=== PATIENT | male | born 1950 | race Caucasian/White ===

== ENCOUNTER 2016-08-06 17:14 | Inpatient (IN) | payer MEDICARE ==
[2016-08-06] VITALS: BP 140/84
[~2016-08-06] VITALS: Ht 175.3 cm; Wt 70.3 kg
[2016-08-06] MEDS ORDERED: ONDANSETRON HCL/PF 4 MG/2 ML VIAL IVP ONE (18:00)
[2016-08-06] MEDS ORDERED: IV NS 0.9% 1,000 ML BAG IV ONE (18:00)
[2016-08-06 18:07] LABS: BASOPHILS % (AUTO) 0.3 % (0.0-2.0); DIFF TOTAL % 100 %; EOSINOPHILS # (AUTO) 0.1 /CMM (0.0-0.7); EOSINOPHILS % (AUTO) 0.6 % (0.0-6.0); HEMATOCRIT 49 % (39-51); HEMOGLOBIN 16.8 g/dL (13.5-17.5); LYMPHOCYTES # (AUTO) 1.6 /CMM (0.8-4.8); LYMPHOCYTES % (AUTO) 15.1 % (20.0-44.0); MEAN CORPUSCULAR HEMOGLOBIN 33 PG (26.0-33.0); MEAN CORPUSCULAR HGB CONC 35 g/dl (31.0-36.0); MEAN CORPUSCULAR VOLUME 96 fL (80-96); MONOCYTES # (AUTO) 1.3 /CMM (0.1-1.30); MONOCYTES % (AUTO) 12.3 % (2.0-12.0); NEUTROPHILS # (AUTO) 7.4 /CMM (1.8-8.9); NEUTROPHILS % (AUTO) 71.7 % (43.0-81.0); PLATELET COUNT (AUTO) 217 /CMM (150-450); RED BLOOD CELL COUNT(AUTO) 5.07 MIL/uL (4.5-6.0); WHITE BLOOD COUNT (AUTO) 10.4 K/uL (4.3-11.0)
[2016-08-06] MEDS ORDERED: IV SET PRIMARY 1 EA INFUS.SET MC ONE (18:15)
[2016-08-06] MEDS ORDERED: ONDANSETRON HCL/PF 4 MG/2 ML VIAL ONE (18:15)
[2016-08-06] MEDS ORDERED: IV NS 0.9% 1,000 ML ONE ×2 (18:15→19:04)
[2016-08-06 18:29] LABS: BILIRUBIN,DIRECT 0.3 mg/dL (0.0-0.2); BILIRUBIN,TOTAL 0.9 mg/dL (0.2-1.0); CALCIUM, SERUM 8.8 mg/dL (8.5-10.1); CREATININE 0.9 mg/dL (0.6-1.3); INDIRECT BILIRUBIN 0.6 mg/dL (0.0-1.1); POTASSIUM 2.9 mmol/L (3.5-5.1); TOTAL PROTEIN, SERUM 6.7 g/dL (6.4-8.2)
[2016-08-06 18:31] LABS: TROPONIN I 0.023 ng/mL (0.00-0.056)
[2016-08-06] MEDS ORDERED: IV NS 0.9% 1,000 ML IV ONE (19:00)
[2016-08-06] MEDS ORDERED: POTASSIUM CL. PREMIX PERIPHER. 50 ML ONE (19:04)
[2016-08-06] MEDS ORDERED: IV SET PRIMARY PUMP SET 1 EA INFUS.SET MC ONE (19:04)
[2016-08-06] MEDS: POTASSIUM CL. PREMIX PERIPHER. 50 ML IV SCH ×3 (19:13→23:10)
[2016-08-06] MEDS ORDERED: POTASSIUM CL. PREMIX PERIPHER. 150 ML ONE (20:23)
[2016-08-06 20:30] VITALS: BP 131/76
[2016-08-06] MEDS ORDERED: SECONDARY IV SET 1 EA INFUS.SET MC ONE (20:41)
[2016-08-06] MEDS ORDERED: ONDANSETRON HCL/PF 4 MG/2 ML VIAL IVP PRN (22:30)
[2016-08-06] MEDS ORDERED: ZOLPIDEM TARTRATE 5 MG TABLET PO PRN (22:30)
[2016-08-06] MEDS ORDERED: Z GUARD REMEDY 2 OZ OINT TP PRN (22:30)
[2016-08-06] MEDS ORDERED: MAGNESIUM HYDROXIDE 30 ML UDC PO PRN (22:30)
[2016-08-06] MEDS ORDERED: MAG HYDROX/AL HYDROX/SIMETH 30 ML UDC PO PRN (22:30)
[2016-08-06] MEDS ORDERED: ACETAMINOPHEN 325 MG TABLET PO PRN (22:30)
[2016-08-06] MEDS ORDERED: HYDROCODONE/APAP 5/325MG 1 EACH TABLET PO PRN (22:30)
[2016-08-06] MEDS ORDERED: METOPROLOL TARTRATE INJ 5 MG/5 ML AMPUL ONE (23:26)
[2016-08-06] MEDS ORDERED: METOPROLOL TARTRATE INJ 5 MG/5 ML AMPUL IVP ONE (23:30)
[2016-08-06] MEDS ORDERED: METOPROLOL TARTRATE INJ 5 MG/5 ML AMPUL IVP PRN (23:30)
[2016-08-07] VITALS (7 sets, daily range): BP systolic 112–152; BP diastolic 50–92
[2016-08-07] MEDS: POTASSIUM CL. PREMIX PERIPHER. 50 ML IV SCH (01:12)
[2016-08-07 07:28] LABS: BASOPHILS % (AUTO) 0.4 % (0.0-2.0); DIFF TOTAL % 100 %; EOSINOPHILS # (AUTO) 0.1 /CMM (0.0-0.7); EOSINOPHILS % (AUTO) 1.4 % (0.0-6.0); HEMATOCRIT 43 % (39-51); HEMOGLOBIN 14.6 g/dL (13.5-17.5); LYMPHOCYTES % (AUTO) 20.2 % (20.0-44.0); MEAN CORPUSCULAR HEMOGLOBIN 33 PG (26.0-33.0); MEAN CORPUSCULAR HGB CONC 34 g/dl (31.0-36.0); MEAN CORPUSCULAR VOLUME 97 fL (80-96); MONOCYTES # (AUTO) 1.3 /CMM (0.1-1.30); MONOCYTES % (AUTO) 12.9 % (2.0-12.0); NEUTROPHILS # (AUTO) 6.4 /CMM (1.8-8.9); NEUTROPHILS % (AUTO) 65.1 % (43.0-81.0); PLATELET COUNT (AUTO) 207 /CMM (150-450); RED BLOOD CELL COUNT(AUTO) 4.41 MIL/uL (4.5-6.0); WHITE BLOOD COUNT (AUTO) 9.9 K/uL (4.3-11.0)
[2016-08-07 07:49] LABS: ALBUMIN 2.5 g/dL (3.4-5.0); BILIRUBIN,TOTAL 0.9 mg/dL (0.2-1.0); CALCIUM, SERUM 8.2 mg/dL (8.5-10.1); PHOSPHORUS 3.3 mg/dL (2.5-4.9); POTASSIUM 3.7 mmol/L (3.5-5.1); TOTAL PROTEIN, SERUM 5.7 g/dL (6.4-8.2)
[2016-08-07] MEDS ORDERED: TAMS-12 PO (07:49)
[2016-08-07 07:55] LABS: PREALBUMIN 13.4 MG/DL (18.0-35.7); THYROID STIMULATING HORMONE 1.513 uIU/mL (0.358-3.74)
[2016-08-07] MEDS: PANTOPRAZOLE 40 MG TABLET.DR PO SCH (08:31)
[2016-08-07] MEDS ORDERED: IV NS 0.9% 1,000 ML IV PRN (08:51)
[2016-08-07] MEDS ORDERED: METOPROLOL TARTRATE 50 MG TABLET PO SCH (09:00)
[2016-08-07] MEDS ORDERED: ASPIRIN 81 MG TAB.CHEW PO SCH (09:00)
[2016-08-07] MEDS ORDERED: SECONDARY IV SET 1 EA INFUS.SET MC ONE (09:06)
[2016-08-07] MEDS: Magnesium 1GM/D5W 100ML PREMIX 100 ML IV SCH ×2 (09:39→11:25)
[2016-08-07] MEDS: METOPROLOL TARTRATE 50 MG TABLET PO SCH ×2 (09:39→20:44)
[2016-08-07] MEDS: POTASSIUM CHLORIDE 20 MEQ TAB.PRT.SR PO SCH ×3 (09:39→10:47)
[2016-08-07] MEDS: IV NS 0.9% 1,000 ML IV PRN (16:29)
[2016-08-07] MEDS: LORAZEPAM INJ 2 MG/ML VIAL IV PRN (16:30)
[2016-08-07] MEDS ORDERED: ATORVASTATIN 40 MG TABLET PO SCH (22:00)
[2016-08-08] VITALS: BP 136/70
[2016-08-08] MEDS: LORAZEPAM INJ 2 MG/ML VIAL IV PRN (01:06)
[2016-08-08] MEDS: IV NS 0.9% 1,000 ML IV PRN ×3 (01:08→23:50)
[2016-08-08 04:00] VITALS: BP 128/77
[2016-08-08] MEDS: PANTOPRAZOLE 40 MG TABLET.DR PO SCH (07:30)
[2016-08-08 08:00] VITALS: BP 130/78
[2016-08-08 08:15] LABS: *RAPID PLASMA REAGIN QUAL Non Reactive (Non Reactive)
[2016-08-08] MEDS: ASPIRIN 81 MG TAB.CHEW PO SCH (08:33)
[2016-08-08] MEDS: METOPROLOL TARTRATE 50 MG TABLET PO SCH ×2 (08:33→20:57)
[2016-08-08 11:59] LABS: BASOPHILS # (AUTO) 0.1 /CMM (0.0-0.2); BASOPHILS % (AUTO) 0.7 % (0.0-2.0); DIFF TOTAL % 100 %; EOSINOPHILS # (AUTO) 0.1 /CMM (0.0-0.7); EOSINOPHILS % (AUTO) 1.1 % (0.0-6.0); HEMATOCRIT 40 % (39-51); HEMOGLOBIN 13.6 g/dL (13.5-17.5); LYMPHOCYTES # (AUTO) 1.5 /CMM (0.8-4.8); LYMPHOCYTES % (AUTO) 16.9 % (20.0-44.0); MEAN CORPUSCULAR HEMOGLOBIN 33 PG (26.0-33.0); MEAN CORPUSCULAR HGB CONC 34 g/dl (31.0-36.0); MEAN CORPUSCULAR VOLUME 97 fL (80-96); MONOCYTES % (AUTO) 11.6 % (2.0-12.0); NEUTROPHILS # (AUTO) 6.1 /CMM (1.8-8.9); NEUTROPHILS % (AUTO) 69.7 % (43.0-81.0); PLATELET COUNT (AUTO) 182 /CMM (150-450); RED BLOOD CELL COUNT(AUTO) 4.11 MIL/uL (4.5-6.0); WHITE BLOOD COUNT (AUTO) 8.7 K/uL (4.3-11.0)
[2016-08-08 12:00] VITALS: BP 118/48
[2016-08-08 12:09] LABS: CALCIUM, SERUM 8.1 mg/dL (8.5-10.1); CREATININE 0.8 mg/dL (0.6-1.3); POTASSIUM 3.8 mmol/L (3.5-5.1)
[2016-08-08 12:10] LABS: CALCIUM, SERUM 7.6 mg/dL (8.5-10.1); CREATININE 0.8 mg/dL (0.6-1.3); POTASSIUM 3.6 mmol/L (3.5-5.1)
[2016-08-08 12:14] LABS: ALBUMIN 2.5 g/dL (3.4-5.0); BILIRUBIN,TOTAL 0.7 mg/dL (0.2-1.0); PHOSPHORUS 2.7 mg/dL (2.5-4.9); TOTAL PROTEIN, SERUM 5.6 g/dL (6.4-8.2)
[2016-08-08] MEDS ORDERED: CHLORDIAZEPOXIDE HCL 25 MG CAPSULE PO PRN (13:00)
[2016-08-08] MEDS ORDERED: Magnesium 1GM/D5W 100ML PREMIX PIGGYBACK IV ONE (14:30)
[2016-08-08 16:00] VITALS: BP 130/70
[2016-08-08] MEDS: RIVAROXABAN 10 MG TABLET PO SCH (16:14)
[2016-08-08] MEDS: Magnesium 1GM/D5W 100ML PREMIX 100 ML IV SCH ×2 (16:15→17:25)
[2016-08-08] MEDS ORDERED: APIXABAN 2.5 MG TABLET PO SCH (17:00)
[2016-08-08 20:00] VITALS: BP 112/61
[2016-08-09 04:00] VITALS: BP 117/66
[2016-08-09 08:00] VITALS: BP 142/93
[2016-08-09] MEDS: ASPIRIN 81 MG TAB.CHEW PO SCH (11:22)
[2016-08-09] MEDS: METOPROLOL TARTRATE 50 MG TABLET PO SCH ×2 (11:25→21:56)
[2016-08-09] MEDS: PANTOPRAZOLE 40 MG TABLET.DR PO SCH (11:25)
[2016-08-09] MEDS: IV NS 0.9% 1,000 ML IV PRN (14:44)
[2016-08-09 16:00] VITALS: BP 95/53
[2016-08-09] MEDS: RIVAROXABAN 10 MG TABLET PO SCH (16:54)
[2016-08-09 20:00] VITALS: BP 145/52
[2016-08-10 06:00] VITALS: BP 116/67
[2016-08-10 08:00] VITALS: BP 135/62
[2016-08-10 08:33] LABS: BASOPHILS % (AUTO) 0.4 % (0.0-2.0); DIFF TOTAL % 100 %; EOSINOPHILS # (AUTO) 0.1 /CMM (0.0-0.7); EOSINOPHILS % (AUTO) 1.1 % (0.0-6.0); HEMATOCRIT 40 % (39-51); HEMOGLOBIN 13.5 g/dL (13.5-17.5); LYMPHOCYTES # (AUTO) 1.5 /CMM (0.8-4.8); LYMPHOCYTES % (AUTO) 15.6 % (20.0-44.0); MEAN CORPUSCULAR HEMOGLOBIN 33 PG (26.0-33.0); MEAN CORPUSCULAR HGB CONC 34 g/dl (31.0-36.0); MEAN CORPUSCULAR VOLUME 97 fL (80-96); MONOCYTES # (AUTO) 1.1 /CMM (0.1-1.30); MONOCYTES % (AUTO) 11.6 % (2.0-12.0); NEUTROPHILS # (AUTO) 6.9 /CMM (1.8-8.9); NEUTROPHILS % (AUTO) 71.3 % (43.0-81.0); PLATELET COUNT (AUTO) 196 /CMM (150-450); RED BLOOD CELL COUNT(AUTO) 4.11 MIL/uL (4.5-6.0); WHITE BLOOD COUNT (AUTO) 9.7 K/uL (4.3-11.0)
[2016-08-10 08:46] LABS: CALCIUM, SERUM 8.3 mg/dL (8.5-10.1); CREATININE 0.8 mg/dL (0.6-1.3); PHOSPHORUS 2.7 mg/dL (2.5-4.9); POTASSIUM 3.6 mmol/L (3.5-5.1)
[2016-08-10 08:51] VITALS: BP 135/62
[2016-08-10] MEDS ORDERED: ASPIRIN 325 MG TABLET PO SCH (10:20)
[2016-08-10] MEDS: PANTOPRAZOLE 40 MG TABLET.DR PO SCH (10:26)
[2016-08-10] MEDS: METOPROLOL TARTRATE 50 MG TABLET PO SCH ×2 (10:26→21:00)
[2016-08-10] MEDS: Magnesium 1GM/D5W 100ML PREMIX 100 ML IV SCH ×2 (14:49→16:09)
[2016-08-10 16:00] VITALS: BP 123/68
[2016-08-10] MEDS: RIVAROXABAN 10 MG TABLET PO SCH (17:31)
[2016-08-11 08:00] VITALS: BP 160/91
[2016-08-11] MEDS: PANTOPRAZOLE 40 MG TABLET.DR PO SCH (08:35)
[2016-08-11] MEDS: METOPROLOL TARTRATE 50 MG TABLET PO SCH (08:35)
[2016-08-11 09:00] VITALS: BP 160/91
[2016-08-11] MEDS ORDERED: ATOR40TA PO (12:29)
[2016-08-11] MEDS ORDERED: RIVA10TA PO (12:29)
[2016-08-11] MEDS ORDERED: METO50TA3 PO (12:29)
[2016-08-11] MEDS ORDERED: PANT40TA2 PO (12:29)
[2016-08-11] MEDS ORDERED: ATORVASTATIN 40 MG TABLET PO SCH (12:30)
[2016-08-11] MEDS ORDERED: SECONDARY IV SET 1 EA INFUS.SET MC ONE (14:20)
[2016-08-11] MEDS: Magnesium 1GM/D5W 100ML PREMIX 100 ML IV SCH ×3 (14:27→16:11)
== END 2016-08-11 17:24 | DRG 65 ==
LOC: ER 17:16 → TELE1 19:35 → TELE-TD 23:38 → MEDSG1 08-08 15:55
PROVIDERS: ADMIT Family Medicine; ATTEND Family Medicine
PROC: 05H533Z Insertion of Infusion Device into Right Subclavian Vein, Percutaneous Approach (ICD-10-PCS; principal; 2016-08-10)
DX: I63.9 Cerebral infarction, unspecified (principal); E44.0 Moderate protein-calorie malnutrition; G81.91 Hemiplegia, unspecified affecting right dominant side; I48.91 Unspecified atrial fibrillation; E87.6 Hypokalemia; E83.42 Hypomagnesemia; E86.0 Dehydration; F41.9 Anxiety disorder, unspecified; Z87.891 Personal history of nicotine dependence; Z91.14 Patient's other noncompliance with medication regimen; E88.09 Other disorders of plasma-protein metabolism, not elsewhere classified; Z68.22 Body mass index [BMI] 22.0-22.9, adult; Z86.73 Personal history of transient ischemic attack (TIA), and cerebral infarction without residual deficits
CPT/HCPCS: 36415; 70450-TC; 70551-TC; 71010-TC; 80048-TC; 80053-TC; 80061-TC; 80076-TC; 83690-TC; 83735-TC; 84100-TC; 84134-TC; 84443-TC; 84484-TC; 85025-TC; 86592; 87081-TC; 93307-TC; 93880-TC; 97001-TC; A4606; J2060; J3475; J3480; J3490; J7030; Z7610